=== PATIENT | female | born 1985 | race Caucasian/White ===

== ENCOUNTER 2016-11-07 17:42 | Emergency (ER) | payer OTHER ==
[~2016-11-07] VITALS: Ht 162.6 cm; Wt 108.9 kg
[~2016-11-07 17:42] MED LIST: ADVIL200 MG PO; B12 1MG PE1000 MCG/M IM; BENZACLIN 5%-1%1 GEL TOP; ESCITALOPRAM10 MG PO; METFORMIN ER500 MG PO; SEASONIQUE 30 M1 TAB PO; VITAMIN D50000 IU PO
[2016-11-07 18:00] VITALS: BP 147/93
[2016-11-07] MEDS ORDERED: ESCITALOPRAM OX10 MG PO (20:01)
[2016-11-07] MEDS ORDERED: VITAMIN B-121000 MC3 PO (20:02)
[2016-11-07] MEDS ORDERED: MULTI-DAY VITA1 EACH PO (20:02)
[2016-11-07] MEDS ORDERED: BIOTIN5 M2 PO (20:02)
--- NOTE | 2016-11-07 20:34 | ED UPPER/LOWER EXTREMITY COMPL ---
History of Present Illness General Chief Complaint: Foot or Ankle Injury Stated Complaint: BILATERAL ANKLE INJURY Source: patient Exam Limitations: no limitations Vital Signs & Intake/Output Vital Signs & Intake/Output Vital Signs Date Time Temp Pulse Resp B/P Pulse O2 O2 Flow FiO2 Ox Delivery Rate 11/07 1800 97.8 89 20 147/93 99 Room Air ED Intake and Output 11/08 0000 11/07 1200 Intake Total 0 Output Total Balance 0 Intake, Oral 0 Patient 240 lb Weight Allergies Coded Allergies: Penicillins (Intermediate, HIVES AND SWELLING FACIAL 11/07/16) Reconcile Medications Biotin (Unknown Strength) TABLET (Unknown Dose) PO DAILY SUPPLEMENT (Reported ) Cyanocobalamin (Vitamin B-12) (Unknown Strength) TABLET (Unknown Dose) PO DAILY SUPPLEMENT (Reported) Escitalopram Oxalate 10 MG TABLET 1 TAB PO DAILY MENTAL HEALTH (Reported) Multivitamin (Multi-Day Vitamins) 1 EACH TABLET 1 TAB PO DAILY SUPPLEMENT ( Reported) Triage Note: TRIAGE: PT TO ER WITH EX- C/C BILATERAL ANKLE PAIN S/P INJURY APPROX 15 MIN FOOT TENDER. STATES "I JUST STEPPED ON THE STEP WRONG. I ALREADY HAVE A WEAK ANKLE AND THE OTHER ONE GAVE OUT ON ME TOO." L ANKLE HURTS WORSE THAN R ANKLE. HAS ICE PACK IN PLACE. PT HAD HOME TEST WEDNESDAY WHICH WAS POSITIVE. THINKS LMP WAS 10/07 BUT IS UNSURE. Triage Nurses Notes Reviewed? yes : Yes Patient currently breastfeeds: No HPI: 31-year-old female who is , found out 2 days ago, last measured. He was 4 weeks ago, she took a home test, complaints of mild right lateral foot pain and moderate left lateral ankle pain. She was walking down the stairs , tripped, inverted her left ankle and twisted her right foot. Injury occurred prior to arrival. She is having trouble putting weight on her left foot did her ankle pain. Previous right-sided ankle sprains. No other injuries. No abdominal pain, no nausea no vomiting, no pelvis or abdominal trauma. No treatment thus far. Symptoms are moderate Past History Travel History Traveled to [place] past 21 day No Medical History Any Pertinent Medical History? see below for history Neurological: NONE EENT: NONE Cardiovascular: NONE Respiratory: NONE Gastrointestinal: NONE Hepatic: NONE Renal: NONE Musculoskeletal: NONE Psychiatric: anxiety Endocrine: NONE Blood Disorders: NONE Cancer(s): NONE [employer] INSPECTOR/Reproductive: PCOS Surgical History Surgical History: N Psychosocial History What is your primary language Ukrainian Tobacco Use: Never used ETOH Use: denies use Illicit Drug Use: denies illicit drug use Family History Hx Contributory? No Review of Systems Review of Systems Constitutional: Reports: see HPI. EENTM: Reports: no symptoms. Respiratory: Reports: no symptoms. Cardiovascular: Reports: no symptoms. Gastrointestinal/Abdominal: Reports: no symptoms. Genitourinary: Reports: no symptoms. Musculoskeletal: Reports: see HPI. Skin: Reports: no symptoms. Neurological/Psychological: Reports: no symptoms. Hematologic/Endocrine: Reports: no symptoms. Immunological: Reports: no symptoms. All Other Systems: Reviewed and Negative Physical Exam Physical Exam General Appearance: well developed/nourished Comments: Well-developed well-nourished no apparent distress. HEENT: Atraumatic, extraocular motion intact Neck: Supple, no lymphadenopathy Back: Nontender Respiratory: No respiratory distress Extremities: No edema, full range of motion Neuro: Alert and oriented x3 Psych: Mood affect normal, normal memory normal judgment. Skin: Warm and dry, no rash on exposed skin Left Ankle with moderate tenderness laterally over the lateral ligaments. Distal fibular tenderness is noted. No medial tenderness. Range of motion is near full but somewhat limited due to pain. No instability is noted. Skin is intact, mild swelling and ecchymosis laterally. The foot is neurovascularly intact with sensation and motor grossly intact. There is no foot tenderness or fifth metatarsal tenderness. Able to move all toes. Right ankle, exam is benign, nontender, full range of motion. Right lateral proximal foot at the base of the fourth metatarsal region there is a small area of swelling and ecchymosis which is tender to palpation. There is no fifth metatarsal tenderness at all. Range of motion is full. Mild increased pain with inversion stress. Neurovascularly intact. Progress Differential Diagnosis: arterial insufficiency, cellulitis, CHF, compartment syndrome, contusion, dislocation, DVT, fracture, gout, septic arthritis, sprain, tendon injury Plan of Care: Orders Procedure Date/time Status Durable Medical Equipment 11/07 2034 Active Diagnostic Imaging: Viewed by Me: Radiology Read. Discussed w/RAD: Radiology Read. Radiology Impression: PATIENT: MATILDE VILLARREAL PRESENT AGE: 31 PATIENT ACCOUNT NO: [id number] : 86 LOCATION: [facility] ORDERING PHYSICIAN: SANTIAGO MAKI SERVICE DATE: 11/07/16 EXAM TYPE : RAD - XRY-ANKLE 3 OR MORE VIEWS L EXAMINATION: XR ANKLE, LEFT CLINICAL INFORMATION: A 31-year-old female, apparently 4 weeks , presented with inversion injury involving the left ankle. COMPARISON: None. TECHNIQUE: AP, lateral, and mortise views of the left ankle. FINDINGS: The bony alignment is intact. The cortices are intact. The articular margins, joint space appear unremarkable. No significant soft tissue swelling is present. No focal osseous abnormality is present. IMPRESSION: No radiographic evidence of any acute fracture and/or dislocation or any significant soft tissue swelling identified. DICTATED BY: EARLE OLMEDO MD DATE/TIME DICTATED:11/07/162040 LABORER PIPELINES:CONCETTA DATE/TIME TRANSCRIBED:11/07/162040 Comments: Patient was counseled regarding possible radiation exposure to the fetus. Due to her distal fibular region tenderness I am concerned for possible nondisplaced fracture and feels of the x-rays important of her left ankle. I am not so concerned about her left foot I feel as though this is a mild foot sprain. She agrees with x-ray and has spoken to our radiation supervisor mixing Miss Scott. Recommend Dangelo wrap, air cast left lower leg applied, x-rays are unremarkable. Tylenol Aircast elevation rest ice and orthopedic follow-up recommended Departure Departure Disposition: HOME OR SELF CARE Condition: Stable Clinical Impression Primary Impression: Moderate left ankle sprain Qualifiers: Encounter type: initial encounter Qualified Code: S93.402A - Sprain of unspecified ligament of left ankle, initial encounter Secondary Impressions: Sprain of right foot Qualifiers: Encounter type: initial encounter Qualified Code: S93.601A - Unspecified sprain of right foot, initial encounter Referrals: NIRAV DAVILA (PCP/Family) KEN TERRAZAS,DESIRE Ku Additional Instructions: rest, ice, dangelo wrap, aircast as needed when walking for the next 1-2 weeks. follow up with orthopedist in 1 week. tylenol for pain. Departure Forms: Customer Survey General Discharge Information
--- NOTE | 2016-11-07 21:21 | RADIOLOGY REPORT ---
EXAMINATION: XR ANKLE, LEFT CLINICAL INFORMATION: A 31-year-old female, apparently 4 weeks , presented with inversion injury involving the left ankle. COMPARISON: None. TECHNIQUE: AP, lateral, and mortise views of the left ankle. FINDINGS: The bony alignment is intact. The cortices are intact. The articular margins, joint space appear unremarkable. No significant soft tissue swelling is present. No focal osseous abnormality is present. IMPRESSION: No radiographic evidence of any acute fracture and/or dislocation or any significant soft tissue swelling identified.
== END 2016-11-07 20:43 ==
LOC: ERH 17:42
DX: O9A.211 Injury, poisoning and certain other consequences of external causes complicating pregnancy, first trimester (principal); S93.402A Sprain of unspecified ligament of left ankle, initial encounter; S93.601A Unspecified sprain of right foot, initial encounter; X58.XXXA Exposure to other specified factors, initial encounter
CPT/HCPCS: 73610-LT